=== PATIENT | male | born 1960 | race Caucasian/White ===

== ENCOUNTER 2021-09-07 06:54 | Emergency (ER) | payer OTHER ==
[2021-09-07 07:38] VITALS: BP 151/86; PULSE 60; BMI 29.7
[2021-09-07 07:39] VITALS: TEMP 98.2
== END 2021-09-07 08:35 | disposition home or self-care (01) ==
LOC: JERFT 06:54 → JER 06:54 → JERFT 08:35
DX: M54.42 Lumbago with sciatica, left side (principal)
CPT/HCPCS: 99283-25